=== PATIENT | male | born 1955 | race African-American/Black ===

== ENCOUNTER → 2017-07-13 | Outpatient (CLI) | payer OTHER, MEDICAID, MEDICARE ==
[2017-07-13 08:24] LABS: CHOLESTEROL 152 mg/dL (0-200); CHOLESTEROL/HDL RATIO 2.3; HDLC 66 mg/dL (40-60); LDLC 76 mg/dL (0-100); NON-HDL CHOLESTEROL 86 mg/dL (0-129); TRIGLYCERIDES 51 mg/dL (0-150); VLDLC 10 mg/dL (0-40)
[2017-07-13 21:10] LABS: HEMOGLOBIN A1C 5.6 % (4.8-5.6)
== END | disposition home or self-care (01) ==
LOC: LAB 07:49
DX: F20.9 Schizophrenia, unspecified (principal); I10 Essential (primary) hypertension; E78.00 Pure hypercholesterolemia, unspecified; Z79.899 Other long term (current) drug therapy
CPT/HCPCS: 36415; 80061; 83036

== ENCOUNTER → 2020-09-20 | Outpatient (CLI) | payer MEDICARE, OTHER ==
[2016-04-07 23:54] VITALS: BP 135/75
[~2020-09-20] MED LIST: ACET325T9 PO; ALBU2.5V8 INH; ATEN25TA PO; AZIT250T6 PO; AZIT500T2 PO; LOSA-73 PO; OLAN20TA15 PO
[2020-09-22 09:07] LABS: HEMATOCRIT 43.1 % (39.0-53.0); HEMOGLOBIN 14.3 g/dL (13.0-17.5); RED BLOOD COUNT 5.17 x10^6/uL (4.30-5.70); RED CELL DISTRIBUTION WIDTH 15.1 % (11.5-14.5); WHITE BLOOD COUNT 8.8 x10^3/uL (4.0-11.0)
[2020-09-22 09:13] LABS: CALCIUM 9.1 mg/dL (8.5-10.1); GFR 90.7; POTASSIUM 4.8 mmol/L (3.5-5.1)
== END ==
LOC: SURGPAT 14:34
PROVIDERS: ATTEND Surgery
DX: Z01.818 Encounter for other preprocedural examination (principal); K40.90 Unilateral inguinal hernia, without obstruction or gangrene, not specified as recurrent
CPT/HCPCS: 36415; 80048; 85027; 93005

== ENCOUNTER → 2021-01-11 | Outpatient (CLI) | payer MEDICARE, OTHER ==
[2016-04-07 23:54] VITALS: BP 135/75
[~2021-01-11] MED LIST changes: +OXYC-325 PO
== END ==
LOC: LAB 11:56
PROVIDERS: ATTEND Surgery
DX: Z01.812 Encounter for preprocedural laboratory examination (principal); K40.90 Unilateral inguinal hernia, without obstruction or gangrene, not specified as recurrent; Z20.822 Contact with and (suspected) exposure to COVID-19
CPT/HCPCS: U0003; U0005

== ENCOUNTER 2021-01-13 06:12 | Day surgery (SDC) | payer MEDICARE, OTHER ==
[~2021-01-13] VITALS: Ht 180.3 cm; Wt 106.0 kg
[~2021-01-13 06:12] MED LIST changes: +ACETAMINOPHEN 500 MG TABLET PO PRN; +HYDROmorphone 2 MG/ML VIAL IVP PRN; +IV RINGERS,LACTATED 1000ML 1,000 ML IV SCH; +MORPHINE SULFATE 2 MG/ML INJ. IVP PRN; -OXYC-325 PO; +PROCHLORPERAZINE 10 MG/2 ML VIAL. IVP PRN; +fentaNYL PF VIAL 100 MCG/2 ML VIAL IVP PRN
[2021-01-13 06:53] VITALS: BP 137/81
[2021-01-13] MEDS ORDERED: LIDOCAINE 1% PF 5 ML VIAL. ONE (07:08)
[2021-01-13] MEDS ORDERED: ROCURONIUM 50 MG/5 ML VIAL. ONE ×2 (07:08→08:16)
[2021-01-13] MEDS ORDERED: fentaNYL PF VIAL 100 MCG/2 ML VIAL ONE ×2 (07:08→09:44)
[2021-01-13] MEDS ORDERED: PROPOFOL 10 MG/ML (20ML) VIAL. IV ONE (07:08)
[2021-01-13] MEDS ORDERED: MINERAL OIL for SURGERY 10 ML VIAL. MC ONE (07:29)
[2021-01-13] MEDS ORDERED: BUPIVACAINE-EPI 0.5%-1:200000 MPF 30 ML VIAL. ONE (07:29)
--- NOTE | 2021-01-13 07:55 | PDOC1 ---
History and Physical Date of Admission Date of Admission DATE: 01/13/21 TIME: 07:51 Identification/Chief Complaint Chief Complaint Right inguinal hernia Source Source: Chart review, Patient History of Present Illness History of Present Illness 65-year-old male with complaints of a painful bulge in his right groin Past Medical History Cardiovascular: HTN Pulmonary: No pertinent hx GI: No pertinent hx Heme/Onc: No pertinent hx Hepatobiliary: No pertinent hx Psych: No pertinent hx Rheumatologic: No pertinent hx Infectious disease: No pertinent hx ENT: No pertinent hx Renal/: No pertinent hx Endocrine: Diabetes Dermatology: No pertinent hx Past Surgical History Past Surgical History: Hernia Repair (Left inguinal) Family History Family History: No Significant Social History Smoke: No ALCOHOL: none Drugs: None Current Medications Current Medications Current Medications Fentanyl Citrate (Fentanyl 2ml Vial) 25 mcg PRN Q5MIN PRN IVP MILD PAIN 1-3; Start 01/13/21 at 06:00; Stop 01/13/21 at 20:00 Fentanyl Citrate (Fentanyl 2ml Vial) 50 mcg PRN Q5MIN PRN IVP MODERATE PAIN 4- 6; Start 01/13/21 at 06:00; Stop 01/13/21 at 20:00 Morphine Sulfate (Morphine Sulfate) 1 mg PRN Q10MIN PRN IVP SEVERE PAIN 7-10; Start 01/13/21 at 06:00; Stop 01/13/21 at 20:00 Ringer's Solution 1,000 ml @ 30 mls/hr Q24H IV Last administered on 01/13/21at 07:09; Start 01/13/21 at 06:00; Stop 01/13/21 at 17:59 Hydromorphone HCl (Dilaudid) 0.5 mg PRN Q10MIN PRN IVP SEVERE PAIN 7-10, 2nd CHOICE; Start 01/13/21 at 06:00; Stop 01/13/21 at 20:00 Prochlorperazine Edisylate (Compazine) 5 mg PACU PRN PRN IVP NAUSEA, MRX1; Start 01/13/21 at 06:00; Stop 01/13/21 at 07:11; Status DC Acetaminophen (Tylenol) 1,000 mg 1X PREOP PRN PO PRIOR TO PROCEDURE Last administered on 01/13/21at 07:17; Start 01/13/21 at 06:00 Cefazolin Sodium/ Dextrose 50 ml @ 100 mls/hr 1X PREOP PRN IV PRIOR TO PROCEDURE; Start 01/13/21 at 06:00; Stop 01/13/21 at 18:00 Cefazolin Sodium/ Dextrose 50 ml @ 100 mls/hr 1X ONCE IV ; Start 01/13/21 at 07:15; Stop 01/13/21 at 07:44; Status DC Fentanyl Citrate (Fentanyl 2ml Vial) 100 mcg STK-MED ONCE .ROUTE ; Start 01/13/21 at 07:08; Stop 01/13/21 at 07:08; Status DC Rocuronium Highland (Zemuron) 50 mg STK-MED ONCE .ROUTE ; Start 01/13/21 at 07:08; Stop 01/13/21 at 07:08; Status DC Propofol (Diprivan) 200 mg STK-MED ONCE IV ; Start 01/13/21 at 07:08; Stop 01/13/21 at 07:08; Status DC Lidocaine HCl (Xylocaine-Mpf 1% 5ml Vial) 5 ml STK-MED ONCE .ROUTE ; Start 01/13/21 at 07:08; Stop 01/13/21 at 07:08; Status DC Bupivacaine HCl/ Epinephrine Bitart (Sensorcain-Epi 0.5%-1:967680 Mpf) 30 ml STK-MED ONCE .ROUTE ; Start 01/13/21 at 07:29; Stop 01/13/21 at 07:29; Status DC Mineral Oil (Muri-Lube) 10 ml STK-MED ONCE MC ; Start 01/13/21 at 07:29; Stop 01/13/21 at 07:29; Status DC Active Scripts Active Proair Hfa Inhaler (Albuterol Sulfate) 8.5 Gm Hfa.aer.ad 1 Puff INH PRN Q6HRS PRN Reported Olanzapine 20 Mg Tablet 20 Mg PO DAILY Losartan Potassium 50 Mg Tablet 50 Mg PO DAILY Atenolol 25 Mg Tablet 25 Mg PO DAILY Allergies Allergies: Coded Allergies: chlorpromazine (Verified Allergy, Severe, SEIZURES, 01/13/21) haloperidol (Verified Allergy, Intermediate, 01/13/21) SIEZURES thioridazine (Verified Allergy, Intermediate, 01/13/21) SIEZURES ROS Genitourinary: YES Pain (Right groin) Physical Exam General: Alert, Oriented X3, Cooperative, mild distress HEENT: Atraumatic, EOMI Lungs: Clear to auscultation, Normal air movement Heart: RRR, no murmurs Abdomen: Normal bowel sounds, Soft, No tenderness Male Genitals Exam: inguinal tenderness (Right inguinal hernia) Rectal Exam: not examined Extremities: No edema Skin: No significant lesion Neuro: Normal speech Psych/Mental Status: Mental status NL Vitals Vitals Vital Signs Date Time Temp Pulse Resp B/P (MAP) Pulse Ox O2 Delivery O2 Flow Rate FiO2 01/13/21 07:01 97.4 80 20 137/81 98 Room Air 97.4 VTE Prophylaxis Ordered VTE Prophylaxis Devices: Yes VTE Pharmacological Prophylaxi: Contraindicated Assessment/Plan Assessment/Plan Right inguinal hernia plan robotic assisted laparoscopic repair patient had some concerns about robotic surgery. Was given the option of having open surgery at , where he had had his left inguinal hernia repaired several years ago. Patient change his mind and decided for a laparoscopic repair. Justifications for Admission Other Justification AMANDA PORTILLO MD Jan 13, 2021 07:55
[2021-01-13] MEDS ORDERED: DEXAMETHASONE SOD PHOS 4 MG/ML VIAL ONE (08:05)
[2021-01-13] MEDS ORDERED: ONDANSETRON PF 4 MG/2 ML VIAL. ONE (08:05)
[2021-01-13] MEDS ORDERED: KETAMINE HCL IN NACL, ISO-OSM 50 MG/5 ML SYRINGE ONE (08:05)
[2021-01-13] MEDS ORDERED: NEOSTIGMINE METHYLSULFATE 5 MG/5 ML SYRINGE. ONE (08:32)
[2021-01-13] MEDS ORDERED: GLYCOPYRROLATE 1 MG/5 ML VIAL. ONE (08:32)
--- NOTE | 2021-01-13 09:19 | PDOC4 ---
Operative Note Operative Note Date: January 132020 at 916 Preoperative diagnosis: Right inguinal hernia Postoperative diagnosis: Same Procedure: Robotic assisted laparoscopic right inguinal hernia repair with mesh Surgeon: Jaden Specimen: None Dictation: Patient is a 65-year-old gentleman with complaints of a painful bulge in his right groin consistent with a hernia. Procedure robotic assisted laparoscopic right inguinal hernia repair with mesh was explained to the patient detail risk benefits were also discussed including bleeding infection injury to intra-abdominal contents possible necessitating further open operations alternatives to this procedure also discussed with the patient who seemed to understand and gave a verbal written consent to have procedure performed. Patient was taken to the operating room placed in supine position general ane sthesia was initiated once patient was sleeping in bed his abdomen was prepped and draped usual sterile fashion he was placed in low lithotomy positioning. Area just above his umbilicus was injected with quarter percent Marcaine with epinephrine incision was made 11 blade scalpel and a varies needle was placed within the abdomen creating pneumoperitoneum once this complete 8 mm ventral port was placed in the 8 mm da Ted camera was placed within the abdomen which was inspected was noted that there was a right inguinal hernia with small bowel involved. 8 mm da Ted port was placed in the right midabdomen and an 8 mm da Ted port was placed in the left midabdomen under direct visualization. The da Ted robot was brought and docked all port sites surgeon went to the robotic console using a grasper and Endo Jacobo scissors the small bowel was reduced from the hernia defect the peritoneum was incised superiorly and a flap was propagated posteriorly using blunt and sharp dissection was a very large hernia sac this was excised using blunt and sharp dissection. A large Bard 3D max mesh for the right side was then placed over the hernia defect a couple single interrupted 3-0 Vicryl sutures were used to tack the superior border of the mesh to the anterior abdominal wall. The peritoneum was then closed over the mesh with a running 2 OV lock absorbable suture. Sutures removed from the abdomen. The da Ted robot was undocked from all port sites all ports were removed the pneumoperitoneum was reduced all port sites were closed with 4 subcuticular Monocryl Mastisol Steri-Strips and island dressings were applied. Patient was awakened and extubated in the operating room taken to recovery in stable condition all sponge instrument needle counts listed as correct estimated blood loss 10 mL. AMANDA PORTILLO MD Jan 13, 2021 09:19
[2021-01-13] MEDS ORDERED: OXYC-325 PO (09:21)
--- NOTE | 2021-01-13 09:23 | DISCH ---
DISCHARGE INSTRUCTIONS Condition on Discharge Condition on Discharge: Stable Activity After Discharge Activity Instructions for Disc: Avoid exertion Other activity instructions: No lifting more than 20 pounds for 2 weeks Diet after Discharge Diet after Discharge: Regular Wound Incision Care Other wound/incision instructi: Maru shower in 24 hours Contacting the DRVeronica after DC Call your doctor for: If your condition worsens Follow-Up Follow up with: Dr. Portillo in 2 weeks AMANDA PORTILLO MD Jan 13, 2021 09:23
[2021-01-13] MEDS ORDERED: SUGAMMADEX SODIUM 200 MG/2 ML VIAL. IVP ONE (09:30)
[2021-01-13] MEDS: fentaNYL PF VIAL 100 MCG/2 ML VIAL IVP PRN ×2 (09:47→10:01)
[2021-01-13] MEDS ORDERED: oxyCODONE/APAP 5/325 1 TAB TABLET PO ONE (10:15)
[2021-01-13 10:34] VITALS: BP 144/91
== END 2021-01-13 11:05 | disposition home or self-care (01) ==
LOC: SURG 06:12
PROVIDERS: ATTEND Surgery
DX: K40.90 Unilateral inguinal hernia, without obstruction or gangrene, not specified as recurrent (principal); I10 Essential (primary) hypertension; E11.9 Type 2 diabetes mellitus without complications; M19.90 Unspecified osteoarthritis, unspecified site; F17.210 Nicotine dependence, cigarettes, uncomplicated; Z79.899 Other long term (current) drug therapy; Z98.890 Other specified postprocedural states; Z72.89 Other problems related to lifestyle; Z88.8 Allergy status to other drugs, medicaments and biological substances
CPT/HCPCS: 49650; A4364; A4930; A6219; C1781; J0690; J1100; J2405; J2704; J2710; J3010; J3490; A4657

== ENCOUNTER 2021-01-16 07:39 | Emergency (ER) | payer MEDICARE, OTHER ==
[~2021-01-16] VITALS: Ht 180.3 cm; Wt 105.7 kg
[~2021-01-16 07:39] MED LIST changes: -ACETAMINOPHEN 500 MG TABLET PO PRN; -HYDROmorphone 2 MG/ML VIAL IVP PRN; -IV RINGERS,LACTATED 1000ML 1,000 ML IV SCH; -MORPHINE SULFATE 2 MG/ML INJ. IVP PRN; +OXYC-325 PO; -PROCHLORPERAZINE 10 MG/2 ML VIAL. IVP PRN; -fentaNYL PF VIAL 100 MCG/2 ML VIAL IVP PRN
--- NOTE | 2021-01-16 07:44 | PHYS DOC ---
Past Medical History Past Medical History: Depression, High Cholesterol, Hypertension, Schizophrenia Past Surgical History: Other Additional Past Surgical Histo: R inguinal hernia repair 01/13/2021 Smoking Status: Current Every Day Smoker Alcohol Use: Heavy Drug Use: None General Adult EDM: Chief Complaint: ABDOMINAL PAIN HPI: HPI: Patient is a 65 year old male with history of recent right inguinal hernia repair who presents with recurrent right inguinal hernia. He had his operation on 01/13, and 01/14 he lifted a box and felt a popping sen sation and a recurrent bulge. He describes 10 out of 10 pain in the right groin and right lower quadrant. Has been unrelenting since change. States that he calls the office and spoke with the nurse to asked him to follow- up at his scheduled 02/03 appointment. He has had no nausea or vomiting. He had a normal bowel movement this morning that was formed. Last p.o. intake was water at 7 AM this morning. Last solid p.o. intake was at 8 PM last night. Per operation note: Date: January 132020 at 916 Preoperative diagnosis: Right inguinal hernia Postoperative diagnosis: Same Procedure: Robotic assisted laparoscopic right inguinal hernia repair with mesh Surgeon: Jaden Review of Systems: Review of Systems: Constitutional: Denies fever or chills. [] Eyes: Denies change in visual acuity. [] HENT: Denies nasal congestion or sore throat. [] Respiratory: Denies cough or shortness of breath. [] Cardiovascular: Denies chest pain or edema. [] GI: Right groin hernia and abdominal pain : Denies dysuria. [] Musculoskeletal: Denies back pain or joint pain. [] Integument: Denies rash. [] Neurologic: Denies headache, focal weakness or sensory changes. [] Endocrine: Denies polyuria or polydipsia. [] Lymphatic: Denies swollen glands. [] Psychiatric: Denies depression or anxiety. [] Heart Score: C/O Chest Pain: No Risk Factors: Risk Factors: DM, Current or recent (<one month) smoker, HTN, HLP, family history of CAD, obesity. Risk Scores: Score 0 - 3: 2.5% MACE over next 6 weeks - Discharge Home Score 4 - 6: 20.3% MACE over next 6 weeks - Admit for Clinical Observation Score 7 - 10: 72.7% MACE over next 6 weeks - Early Invasive Strategies Allergies: Allergies: Allergies Coded Allergies Type Severity Reaction Last Updated Verified chlorpromazine Allergy Severe SEIZURES 01/13/21 Yes haloperidol Allergy Intermediate 01/13/21 Yes thioridazine Allergy Intermediate 01/13/21 Yes Physical Exam: PE: Constitutional: Appears uncomfortable HENT: Normocephalic, atraumatic, bilateral external ears normal, oropharynx moist, no oral exudates, nose normal. [] Eyes: PERRLA, EOMI, conjunctiva normal, no discharge. [] Neck: Normal range of motion, no tenderness, supple, no stridor. [] Cardiovascular:Heart rate regular rhythm, no murmur [] Lungs & Thorax: Bilateral breath sounds clear to auscultation [] Abdomen: Large right inguinal hernia with bulge into the scrotum and palpable/visible bulge going into the groin. Attempted reduction unsuccessfully. The hernia area is tender to the touch. No overlying skin changes. 3 incision sites were well-appearing and well approximated Extremities: No tenderness, no cyanosis, no clubbing, ROM intact, no edema. [] Neurologic: Alert and oriented X 3, normal motor function, normal sensory function, no focal deficits noted. [] Psychologic: Affect normal, judgement normal, mood normal. [] EKG: EKG: [] Radiology/Procedures: Radiology/Procedures: [] Impression: [facility] [address] [place], [place] [id number] IMAGING REPORT Signed PATIENT: PARISA LORENZ ACCOUNT: [id number] : 1955 LOCATION: ER AGE: 65 SEX: M EXAM STATUS: REG ER ORD. PHYSICIAN: ALEXUS LEDEZMA MD REASON: R inguinal hernia recurrence s/p recent mesh repair on 01/13 PROCEDURE: CT ABD PELV W/ IV CONTRST ONLY CT OF THE ABDOMEN AND PELVIS WITH IV CONTRAST. History: Reason: R inguinal hernia recurrence s/p recent mesh repair on 01/13 Comparison:None. Procedure: Contiguous axial images of the abdomen and pelvis were performed after the administration of 75 cc of Omni 300 IV contrast. Oral contrast: No. Findings: There is an infrarenal abdominal aortic aneurysm that measures as great as 4.6 x 4.5 cm and has crescentic thrombus but no dissection or stenosis. There is calcification of the singh of the great vessels. 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 Without The prostate is only mildly enlarged. The appendix is not well seen. The gallbladder appears normal. There is a large right inguinal canal hernia containing fluid and mesenteric fat and edema. There are few foci of air however there is no bowel seen. Liver: Unremarkable Spleen: Unremarkable Pancreas: Unremarkable Adrenal Glands: Unremarkable Kidneys: Unremarkable There is no mass or lymphadenopathy. There is no free air. There is no free fluid. The urinary bladder appears normal. Impression: 1. Large right inguinal canal hernia containing fat and mesenteric vessels and fluid and edema. There is a few foci of air however there does not appear to be bowel or an abscess. 2. Significant atherosclerotic disease with infrarenal abdominal aortic aneurysm and internal iliac artery aneurysms. End Impression PQRS Compliance Statement: One or more of the following individualized dose reduction techniques were utilized for this examination: 1. Automated exposure control 2. Adjustment of the mA and/or kV according to patient size 3. Use of iterative reconstruction technique Electronically signed by: Wood Kelley III, MD (01/16/2021 9:41 AM) [facility] DICTATED and SIGNED BY: WOOD KELLEY III, MD DATE: 01/16/21 [id number] 0 Course & Med Decision Making: Course & Med Decision Making Pertinent Labs and Imaging studies reviewed. (See chart for details) Patient is 65-year-old male who had a right inguinal hernia repair with mesh on 01/13 and on 01/14 felt a recurrent bulge after lifting something heavy (against his instructions). On arrival has a large right inguinal hernia that is not reducible/incarcerated. It is extremely tender. Labs including lactate ordered. No fevers/chills to suggest infection, no obstructive symptoms. Certainly concern for strangulation. Patient has repetitively declined opiate pain medications. Page to surgery placed. [address] Jaimes, of general surgery. He has requested CT imaging, and to call him back when imaging is available. 0830 CT reveals a large right-sided inguinal hernia containing fat as well as mesenteric vessels with fluid and accompanying edema, however per radiology read there does not appear to be bowel present or the abscess. Discussed with Dr. Jaimes, who recommends admission to the hospital with close observation. He will come to evaluate the patient later today. We will discuss admission with the patient's PCP, Dr. Jacobs. [id number] Dr. Pineda is covering for Dr. Jacobs and will admit the patient. 3875 Dr. Jaimes evaluated the patient while still in the ED. He discussed the case with his partner, Dr. Stanley, who felt comfortable with close outpatient follow up. Called Dr. Pineda, who is ok with this plan and has requested that I discharge the patient from the ED. 2040 Sisteer Disclaimer: Dragon Disclaimer: This electronic medical record was generated, in whole or in part, using a voice recognition dictation system. Departure Departure Impression: Primary Impression: Incarcerated right inguinal hernia Disposition: HOME / SELF CARE / HOMELESS Admitting Physician: Luz Pineda Condition: STABLE Referrals: ALEX LONGORIA MD (PCP) AMANDA STANLEY MD Call his office tomorrow to get a follow up appointment this week. ALEXUS LEDEZMA MD Jan 16, 2021 07:44
[2021-01-16 08:33] LABS: BASO % 0 % (0-3); EOS # 0.3 x10^3/uL (0.0-0.7); EOS % 4 % (0-3); HEMATOCRIT 40.3 % (39.0-53.0); HEMOGLOBIN 13.6 g/dL (13.0-17.5); LYMPH # 1.1 x10^3/uL (1.0-4.8); LYMPH % 13 % (24-48); MEAN CORPUSCULAR HEMOGLOBIN 27 pg (25-35); MEAN CORPUSCULAR HGB CONC 34 g/dL (31-37); MEAN CORPUSCULAR VOLUME 81 fL (79-100); MONO # 0.6 x10^3/uL (0.0-1.1); MONO % 7 % (0-9); NEUT # 6.4 x10^3/uL (1.8-7.7); NEUT % 76 % (31-73); PLATELET COUNT 199 x10^3/uL (140-400); RED BLOOD COUNT 4.98 x10^6/uL (4.30-5.70); RED CELL DISTRIBUTION WIDTH 14.9 % (11.5-14.5); WHITE BLOOD COUNT 8.4 x10^3/uL (4.0-11.0)
[2021-01-16 08:40] LABS: CALCIUM 8.9 mg/dL (8.5-10.1); CREATININE 0.8 mg/dL (0.7-1.3)
[2021-01-16] MEDS ORDERED: CONTRAST GIVEN. MC PRN (08:45)
[2021-01-16] MEDS ORDERED: IOHEXOL 300 MG/ML 100ML VIAL. IV ONE (08:45)
[2021-01-16 08:46] LABS: ALBUMIN 3.4 g/dL (3.4-5.0); ALBUMIN/GLOBULIN RATIO 0.9 (1.0-1.7); TOTAL BILIRUBIN 1.3 mg/dL (0.2-1.0)
--- NOTE | 2021-01-16 09:43 | RAD ---
CT OF THE ABDOMEN AND PELVIS WITH IV CONTRAST. History: Reason: R inguinal hernia recurrence s/p recent mesh repair on 01/13 Comparison:None. Procedure: Contiguous axial images of the abdomen and pelvis were performed after the administration of 75 cc o f Omni 300 IV contrast. Oral contrast: No. Findings: There is an infrarenal abdominal aortic aneurysm that measures as great as 4.6 x 4.5 cm and has cresc entic thrombus but no dissection or stenosis. There is calcification of the singh of the great vessel s. 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 W ithout The prostate is only mildly enlarged. The appendix is not well seen. The gallbladder appears normal. There is a large right inguinal canal hernia containing fluid and mesenteric fat and edema. There are few foci of air however there is no bowel seen. Liver: Unremarkable Spleen: Unremarkable Pancreas: Unremarkable Adrenal Glands: Unremarkable Kidneys: Unremarkable There is no mass or lymphadenopathy. There is no free air. There is no free fluid. The urinary bladder appears normal. Impression: 1. Large right inguinal canal hernia containing fat and mesenteric vessels and fluid and edema. There is a few foci of air however there does not appear to be bowel or an abscess. 2. Significant atherosclerotic disease with infrarenal abdominal aortic aneurysm and internal iliac a rtery aneurysms. End Impression PQRS Compliance Statement: One or more of the following individualized dose reduction techniques were utilized for this examinat ion: 1. Automated exposure control 2. Adjustment of the mA and/or kV according to patient size 3. Use of iterative reconstruction technique Electronically signed by: Eduar Gonzales III, MD (01/16/2021 9:41 AM) [facility]
[2021-01-16] MEDS ORDERED: ONDANSETRON PF 4 MG/2 ML VIAL. IVP PRN (10:15)
[2021-01-16 13:13] VITALS: BP 152/83
--- NOTE | 2021-01-16 19:07 | PDOC2 ---
CONSULT Date of Consult Date of Consult DATE: 01/16/21 TIME: 19:00 Reason for Consult Reason for Consult: Recurrent RIH Referring Physician Referring Physician: Dr. Pineda Identification/Chief Complaint Chief Complaint right groin pain and bulge Source Source: Chart review, Patient History of Present Illness Reason for Visit: 65 yo M s/p robotic right inguinal hernia repair few days ago. Pt notes lifting a heavy box and developing pain and bulge. He denies N/V Past Medical History Cardiovascular: HTN Pulmonary: No pertinent hx GI: No pertinent hx Heme/Onc: No pertinent hx Hepatobiliary: No pertinent hx Psych: No pertinent hx Rheumatologic: No pertinent hx Infectious disease: No pertinent hx Renal/: No pertinent hx Endocrine: Diabetes Past Surgical History Past Surgical History: Hernia Repair Family History Family History: No Significant Social History ALCOHOL: none Drugs: None Current Problem List Problem List Problems Medical Problems: (1) Incarcerated right inguinal hernia Status: Acute Current Medications Current Medications Current Medications Iohexol (Omnipaque 300 Mg/ml) 75 ml 1X ONCE IV Last administered on 01/16/21at 08:45; Start 01/16/21 at 08:45; Stop 01/16/21 at 08:46; Status DC Info (CONTRAST GIVEN -- Rx MONITORING) 1 each PRN DAILY PRN MC SEE COMMENTS; Start 01/16/21 at 08:45; Stop 01/18/21 at 08:44 Ondansetron HCl (Zofran) 4 mg PRN Q8HRS PRN IVP NAUSEA/VOMITING; Start 01/16/21 at 10:15; Stop 01/17/21 at 10:14 Active Scripts Active Percocet 5-325 mg Tablet (Oxycodone HCl/Acetaminophen) 1 Each Tablet 1 Tab PO Q6HRS PRN MDD 4 Tablet(s) 5 Days Proair Hfa Inhaler (Albuterol Sulfate) 8.5 Gm Hfa.aer.ad 1 Puff INH PRN Q6HRS PRN Reported Olanzapine 20 Mg Tablet 20 Mg PO DAILY Losartan Potassium 50 Mg Tablet 50 Mg PO DAILY Atenolol 25 Mg Tablet 25 Mg PO DAILY Allergies Allergies: Coded Allergies: chlorpromazine (Verified Allergy, Severe, SEIZURES, 01/13/21) haloperidol (Verified Allergy, Intermediate, 01/13/21) SIEZURES thioridazine (Verified Allergy, Intermediate, 01/13/21) SIEZURES ROS Genitourinary: YES Other (right groin pain and bulge) Physical Exam General: Alert, Oriented X3, Cooperative, mild distress HEENT: Atraumatic Lungs: Normal air movement Abdomen: Soft, Other (TTP right groin and bulge in right scrotum) Psych/Mental Status: Mental status NL, Mood NL Vitals VITALS Vital Signs Date Time Temp Pulse Resp B/P (MAP) Pulse Ox O2 Delivery O2 Flow Rate FiO2 01/16/21 13:13 82 19 152/83 (106) 97 Room Air 01/16/21 07:57 98.9 98.9 Labs Labs Laboratory Tests Test 01/16/21 08:20 01/16/21 08:30 01/16/21 10:20 White Blood Count 8.4 x10^3/uL (4.0-11.0) Red Blood Count 4.98 x10^6/uL (4.30-5.70) Hemoglobin 13.6 g/dL (13.0-17.5) Hematocrit 40.3 % (39.0-53.0) Mean Corpuscular Volume 81 fL (79-100) Mean Corpuscular Hemoglobin 27 pg (25-35) Mean Corpuscular Hemoglobin Concent 34 g/dL (31-37) Red Cell Distribution Width 14.9 % (11.5-14.5) Platelet Count 199 x10^3/uL (140-400) Neutrophils (%) (Auto) 76 % (31-73) Lymphocytes (%) (Auto) 13 % (24-48) Monocytes (%) (Auto) 7 % (0-9) Eosinophils (%) (Auto) 4 % (0-3) Basophils (%) (Auto) 0 % (0-3) Neutrophils # (Auto) 6.4 x10^3/uL (1.8-7.7) Lymphocytes # (Auto) 1.1 x10^3/uL (1.0-4.8) Monocytes # (Auto) 0.6 x10^3/uL (0.0-1.1) Eosinophils # (Auto) 0.3 x10^3/uL (0.0-0.7) Basophils # (Auto) 0.0 x10^3/uL (0.0-0.2) Sodium Level 133 mmol/L (136-145) Potassium Level 4.0 mmol/L (3.5-5.1) Chloride Level 97 mmol/L (98-107) Carbon Dioxide Level 27 mmol/L (21-32) Anion Gap 9 (6-14) Blood Urea Nitrogen 7 mg/dL (8-26) Creatinine 0.8 mg/dL (0.7-1.3) Estimated GFR (Cockcroft-Gault) 117.0 BUN/Creatinine Ratio 9 (6-20) Glucose Level 92 mg/dL (70-99) Calcium Level 8.9 mg/dL (8.5-10.1) Total Bilirubin 1.3 mg/dL (0.2-1.0) Aspartate Amino Transf (AST/SGOT) 72 U/L (15-37) Alanine Aminotransferase (ALT/SGPT) 66 U/L (16-63) Alkaline Phosphatase 60 U/L (46-116) Total Protein 7.0 g/dL (6.4-8.2) Albumin 3.4 g/dL (3.4-5.0) Albumin/Globulin Ratio 0.9 (1.0-1.7) Lactic Acid Level 0.7 mmol/L (0.4-2.0) SARS-CoV-2 Antigen (Rapid) Negative (NEGATIVE) Laboratory Tests Test 01/16/21 08:20 01/16/21 08:30 01/16/21 10:20 White Blood Count 8.4 x10^3/uL (4.0-11.0) Red Blood Count 4.98 x10^6/uL (4.30-5.70) Hemoglobin 13.6 g/dL (13.0-17.5) Hematocrit 40.3 % (39.0-53.0) Mean Corpuscular Volume 81 fL (79-100) Mean Corpuscular Hemoglobin 27 pg (25-35) Mean Corpuscular Hemoglobin Concent 34 g/dL (31-37) Red Cell Distribution Width 14.9 % (11.5-14.5) Platelet Count 199 x10^3/uL (140-400) Neutrophils (%) (Auto) 76 % (31-73) Lymphocytes (%) (Auto) 13 % (24-48) Monocytes (%) (Auto) 7 % (0-9) Eosinophils (%) (Auto) 4 % (0-3) Basophils (%) (Auto) 0 % (0-3) Neutrophils # (Auto) 6.4 x10^3/uL (1.8-7.7) Lymphocytes # (Auto) 1.1 x10^3/uL (1.0-4.8) Monocytes # (Auto) 0.6 x10^3/uL (0.0-1.1) Eosinophils # (Auto) 0.3 x10^3/uL (0.0-0.7) Basophils # (Auto) 0.0 x10^3/uL (0.0-0.2) Sodium Level 133 mmol/L (136-145) Potassium Level 4.0 mmol/L (3.5-5.1) Chloride Level 97 mmol/L (98-107) Carbon Dioxide Level 27 mmol/L (21-32) Anion Gap 9 (6-14) Blood Urea Nitrogen 7 mg/dL (8-26) Creatinine 0.8 mg/dL (0.7-1.3) Estimated GFR (Cockcroft-Gault) 117.0 BUN/Creatinine Ratio 9 (6-20) Glucose Level 92 mg/dL (70-99) Calcium Level 8.9 mg/dL (8.5-10.1) Total Bilirubin 1.3 mg/dL (0.2-1.0) Aspartate Amino Transf (AST/SGOT) 72 U/L (15-37) Alanine Aminotransferase (ALT/SGPT) 66 U/L (16-63) Alkaline Phosphatase 60 U/L (46-116) Total Protein 7.0 g/dL (6.4-8.2) Albumin 3.4 g/dL (3.4-5.0) Albumin/Globulin Ratio 0.9 (1.0-1.7) Lactic Acid Level 0.7 mmol/L (0.4-2.0) SARS-CoV-2 Antigen (Rapid) Negative (NEGATIVE) Images Images Recurrent RIH, but no bowel involvement Assessment/Plan Assessment/Plan recurrent RIH encouraged smoking cessation and avoiding lifting encouraged pt to f/u with Dr. Stanley to consider re repair. Will need to delay intervention to reduce inflammation. OK to d/c from ER. Thanks for consult! CARLOS PLAZA MD Jan 16, 2021 19:07
== END 2021-01-16 13:30 | disposition home or self-care (01) ==
LOC: ER 07:39 → ED HOLD 10:12 → UNDOADMOB 10:12 → ED HOLD 12:04 → ER 13:30 → ED HOLD 21:40
DX: K40.30 Unilateral inguinal hernia, with obstruction, without gangrene, not specified as recurrent (principal); Z20.822 Contact with and (suspected) exposure to COVID-19; E78.00 Pure hypercholesterolemia, unspecified; I10 Essential (primary) hypertension; F20.9 Schizophrenia, unspecified; F17.200 Nicotine dependence, unspecified, uncomplicated; F10.20 Alcohol dependence, uncomplicated; Y90.9 Presence of alcohol in blood, level not specified
CPT/HCPCS: 36415; 74177; 80053; 83605; 85025; 87426; 99284; Q9967; U0003; U0005